=== PATIENT | female | born 1980 | race American Indian/Alaskan Native ===

== ENCOUNTER 2016-08-01 11:29 | Emergency (ER) | payer MEDICAID ==
[2016-08-01 11:39] VITALS: TEMP 98.3; BMI 47.5
[2016-08-01] MEDS ORDERED: Albuterol-Ipratrop 3 mg / 0.5 (3 ml) UD IH STA ×3 (12:13→12:16)
[2016-08-01] MEDS ORDERED: Magnesium Sulfate 2 GM in Sodium Chloride 0.9% 100 ML IVPB ONE (12:15)
--- NOTE | 2016-08-01 12:15 | ED PDOC ---
Arrival/HPI - General Chief Complaint: Shortness Of Breath Time Seen by Provider: 08/01/16 11:31 Historian: Patient - History of Present Illness Narrative History of Present Illness (Text): 08/01/16 12:13 36 year old female whose past medical history includes asthma presents to the emergency department with worsening shortness of breath since yesterday. She states she used her Albuterol pump at home with no improvement. Denies nausea, vomiting, chest pain, or leg swelling. No sick contacts. Time/Duration: 24 hours Symptom Onset: Gradual Symptom Course: Unchanged Modifying Factors (Text): Albuterol pump at home with no improvement Associated Symptoms (Text): None Past Medical History - Provider Review Nursing Documentation Reviewed: Yes - Cardiac Hx Cardiac Disorders: Yes Hx Heart Murmur: Yes - Pulmonary Hx Respiratory Disorders: Yes Hx Asthma: Yes - Neurological Hx Neurological Disorder: No - HEENT Hx HEENT Disorder: No - Renal Hx Renal Disorder: No - Endocrine/Metabolic Hx Endocrine Disorders: Yes Other/Comment: Diabetes unknown type. - Hematological/Oncological Hx Blood Disorders: No - Integumentary Hx Dermatological Disorder: No - Musculoskeletal/Rheumatological Hx Musculoskeletal Disorders: No - Gastrointestinal Hx Gastrointestinal Disorders: No - Genitourinary/Gynecological Hx Genitourinary Disorders: No - Psychiatric Hx Psychophysiologic Disorder: No Hx Substance Use: No - Surgical History Hx Section: Yes (3 C-sections) Family/Social History - Physician Review Nursing Documentation Reviewed: Yes Family/Social History: Unknown Family HX Smoking Status: Never Smoked Hx Alcohol Use: Yes Frequency of alcohol use: Socially Hx Substance Use: No Allergies/Home Meds Allergies/Adverse Reactions: Allergies No Known Allergies Allergy (Unverified 08/01/16 12:13) Review of Systems - Physician Review All systems were reviewed & negative as marked: Yes - Review of Systems Respiratory: SOB Cardiovascular: absent: Chest Pain, Edema Gastrointestinal: absent: Nausea, Vomiting Physical Exam Vital Signs Reviewed: Yes Vital Signs Temp Pulse Resp BP Pulse Ox 08/01/16 14:48 92 H 20 130/99 H 97 08/01/16 12:13 18 08/01/16 11:38 98.3 F 110 H 17 130/90 100 Temperature: Afebrile Blood Pressure: Normal Pulse: Tachycardic Respiratory Rate: Normal Appearance: Positive for: Well-Appearing, Non-Toxic, Comfortable Pain Distress: None Mental Status: Positive for: Alert and Oriented X 3 - Systems Exam Head: Present: Atraumatic, Normocephalic Pupils: Present: PERRL Extroacular Muscles: Present: EOMI Conjunctiva: Present: Normal Mouth: Present: Moist Mucous Membranes Neck: Present: Normal Range of Motion Respiratory/Chest: Present: Good Air Exchange, Wheezes (mild expiratory wheeze) . No: Respiratory Distress, Accessory Muscle Use Cardiovascular: Present: Regular Rate and Rhythm, Normal S1, S2. No: Murmurs Abdomen: Present: Normal Bowel Sounds. No: Tenderness, Distention, Peritoneal Signs Back: Present: Normal Inspection Upper Extremity: Present: Normal Inspection. No: Cyanosis, Edema Lower Extremity: Present: Normal Inspection. No: Edema Neurological: Present: GCS=15, CN II-XII Intact, Speech Normal Skin: Present: Warm, Dry, Normal Color. No: Rashes Psychiatric: Present: Alert, Oriented x 3, Normal Insight, Normal Concentration Medical Decision Making ED Course and Treatment: Impression: 36 year old female whose past medical history includes asthma presents to the emergency department with worsening shortness of breath since yesterday. Differential Diagnosis include but are not limited to: Asthma exacerbation Plan: -- EKG, Chest X-ray -- Albuterol, Duoneb, Magnesium Sulfate -- Labs -- Reassess and disposition Progress Notes: Chest X-ray Branch Or Department Chief Librarian: Naresh Luna MD IMPRESSION: No active disease 08/01/16 15:45 Wheezing improved after treatments. On reevaluation the patient feels better and is in no acute distress. I have discussed the results and plan with the patient, who expresses understanding. Patient given the opportunity to ask question, all questions were answered and there is agreement with the plan to discharge the patient home. Patient is stable for discharge. Patient was instructed to follow up with physician/clinic in 2-3 days or return if symptoms persist/worsen or new concerning symptoms arise. - Critical Care Critical Care Minutes: 30 minutes - Lab Interpretations Lab Results: 08/01/16 12:50 08/01/16 12:50 Lab Results 08/01/16 12:50: Sodium 139, Potassium 4.3, Chloride 101, Carbon Dioxide 24, Anion Gap 18, BUN 7, Creatinine 0.5, Est GFR ( Amer) > 60, Est GFR (Non- Af Amer) > 60, Random Glucose 123 H, Calcium 9.2, Total Bilirubin 1.0, AST 26, ALT 30, Alkaline Phosphatase 73, Lactate Dehydrogenase 484, Total Creatine Kinase 68, Troponin I < 0.01, Total Protein 8.7 H, Albumin 4.2, Globulin 4.5, Albumin/Globulin Ratio 0.9 L 08/01/16 12:50: WBC 7.3, RBC 4.66, Hgb 13.3, Hct 39.0, MCV 83.7, MCH 28.5, MCHC 34.1, RDW 15.0 H, Plt Count 283, MPV 9.8, Gran % 39.2 L, Lymph % (Auto) 48.4 H, Cook % (Auto) 7.1 H, Eos % (Auto) 5.2 H, Baso % (Auto) 0.1, Gran # 2.87, Lymph # 3.6 H, Cook # 0.5, Eos # 0.4, Baso # 0.01 08/01/16 12:14: Urine HCG, Qual Negative I have reviewed the lab results: Yes - RAD Interpretation Radiology Orders: 08/01/16 12:14 CHEST PORTABLE [RAD] Stat Director Of Vocational Training: Radiologist - EKG Interpretation EKG Interpretation (Text): EKG shows sinus tachycardia at 102 BPM. Normal intervals, normal axis. Interpreted by ED Physician: Yes Type: 12 lead EKG - Medication Orders Current Medication Orders: Discontinued Medications Albuterol/Ipratropium (Duoneb 3 Mg/0.5 Mg (3 Ml) Ud) 3 ml IH STAT STA Stop: 08/01/16 12:14 Last Admin: 08/01/16 12:28 Dose: 3 ml Albuterol/Ipratropium (Duoneb 3 Mg/0.5 Mg (3 Ml) Ud) 3 ml IH STAT STA Stop: 08/01/16 12:16 Last Admin: 08/01/16 12:28 Dose: 3 ml Albuterol/Ipratropium (Duoneb 3 Mg/0.5 Mg (3 Ml) Ud) 3 ml IH STAT STA Stop: 08/01/16 12:17 Last Admin: 08/01/16 13:14 Dose: 3 ml Magnesium Sulfate 2 gm/ Sodium (Chloride) 104 mls @ 102 mls/hr IVPB ONCE ONE Stop: 08/01/16 13:16 Last Admin: 08/01/16 13:14 Dose: 102 mls/hr Methylprednisolone (Solu-Medrol) 125 mg IVP STAT STA Stop: 08/01/16 12:14 Last Admin: 08/01/16 12:28 Dose: 125 mg - Oriana Statement The provider has reviewed the documentation as recorded by the Oriana Posada Provider Laiibe Attestation: All medical record entries made by the Laiibe were at my direction and personally dictated by me. I have reviewed the chart and agree that the record accurately reflects my personal performance of the history, physical exam, medical decision making, and the department course for this patient. I have also personally directed, reviewed, and agree with the discharge instructions and disposition. Disposition/Present on Arrival - Present on Arrival Any Indicators Present on Arrival: No History of DVT/PE: No History of Uncontrolled Diabetes: No Urinary Catheter: No History of Decub. Ulcer: No History Surgical Site Infection Following: None - Disposition Have Diagnosis and Disposition been Completed?: Yes Diagnosis: Asthma exacerbation Disposition: HOME/ ROUTINE Disposition Time: 15:45 Condition: IMPROVED Discharge Instructions (ExitCare): Asthma (ED) Additional Instructions: Thank you for letting us take care of you today. Your provider was Dr. Lockhart. You were treated for asthma exacerbation. The emergency medical care you received today was directed at your acute symptoms. If you were prescribed any medication, please fill it and take as directed. It may take several days for your symptoms to resolve. Return to the Emergency Department if your symptoms worsen, do not improve, or if you have any other problems. Please contact your doctor or call one of the physicians/clinics you have been referred to that are listed on the Patient Visit Information form that is included in your discharge packet. Bring any paperwork you were given at discharge with you along with any medications you are taking to your follow up visit. Our treatment cannot replace ongoing medical care by a primary care provider (PCP) outside of the emergency department. Thank you for allowing the [facility] team to be part of your care today. Follow up with your doctor in 2-3 days to be re-evaluated. Prescriptions: predniSONE [Prednisone] 40 mg PO DAILY #10 tab Referrals: [facility]q, [Non-Staff] - Follow up with primary
--- NOTE | 2016-08-01 12:39 | RAD ---
HISTORY: SOB COMPARISON: No prior. FINDINGS: LUNGS: No active pulmonary disease. PLEURA: No significant pleural effusion identified, no pneumothorax apparent. CARDIOVASCULAR: Normal. OSSEOUS STRUCTURES: No significant abnormalities. VISUALIZED UPPER ABDOMEN: Normal. OTHER FINDINGS: None. IMPRESSION: No active disease.
[2016-08-01 12:59] LABS: ADD MANUAL DIFF? NO
[2016-08-01 13:03] LABS: BASO # 0.01 K/mm3 (0.0-2.0); BASO % 0.1 % (0.0-3.0); EOS # 0.4 (0.0-0.7); EOS % 5.2 % (1.5-5.0); GRAN # 2.87 (1.4-6.5); GRAN % 39.2 % (50.0-68.0); LYMPH # 3.6 (1.2-3.4); LYMPH % 48.4 % (22.0-35.0); MEAN CELL VOLUME 83.7 fL (80.0-105.0); MEAN CORPUSCULAR HEMOGLOBIN 28.5 pg (25.0-35.0); MEAN CORPUSCULAR HGB CONC 34.1 g/dl (31.0-37.0); MEAN PLATELET VOLUME 9.8 fl (7.0-11.0); MONO # 0.5 (0.1-0.6); MONO % 7.1 % (1.0-6.0); PLATELET COUNT 283 10^3/uL (120.0-450.0); WHITE BLOOD COUNT 7.3 10^3/ul (4.5-11.0)
[2016-08-01 13:11] LABS: ALB/GLOB RATIO 0.9 (1.1-1.8); ALKALINE PHOSPHATASE 73 U/L (38-133); ALT/SGPT 30 U/L (7-56); AST/SGOT 26 U/L (15-39); BLOOD UREA NITROGEN 7 mg/dL (7-21); CALCIUM 9.2 mg/dL (8.4-10.5); CARBON DIOXIDE 24 mmol/L (21-33); CHLORIDE 101 mmol/L (98-107); GFR AFRICAN-AMERICAN > 60; GLUCOSE,RANDOM 123 mg/dL (70-110); SODIUM 139 mmol/L (132-148); TOTAL PROTEIN 8.7 g/dL (5.8-8.3)
[2016-08-01 13:12] LABS: POTASSIUM 4.3 mmol/L (3.6-5.0)
[2016-08-01 13:28] LABS: TROPONIN I < 0.01 ng/mL
--- NOTE | 2016-08-01 14:41 | CARD ---
APPROVED REPORT EKG Measurement Heart [id number] <Conclusion> Sinus tachycardia Prolonged QTc
[2016-08-01 14:49] VITALS: BP 130/99; PULSE 92; RESP 20; O2SAT 97
== END 2016-08-01 15:50 | disposition home or self-care (01) ==
LOC: ED 11:29
DX: J45.901 Unspecified asthma with (acute) exacerbation (principal)
CPT/HCPCS: 71010; 80053; 81025; 82550; 83615; 84484; 84703; 85025; 87040; 93005; 96365; 96375; 99284; J2930; J3475